=== PATIENT | female | born 1985 | race Caucasian/White ===

== ENCOUNTER 2023-12-03 02:56 | Emergency (ER) | payer MEDICAID, SELFPAY ==
[2023-12-03 03:00] VITALS: BP 150/101; PULSE 106; RESP 20; TEMP 36.6; O2SAT 99; BMI 25.0
--- NOTE | 2023-12-03 03:23 | W.ED.WOUNDLC ---
HPI - Wound/Laceration General: Chief Complaint: Wound/Laceration Stated Complaint: Left Hand Injury Time Seen by Provider: 12/03/23 02:57 History of Present Illness: Patient presents to the ER with complaints of right hand/finger laceration on fingers 234 and 5 on the palmar surface. Patient says she is walking her dog and her dog took off running and she fell and tried to catch herself and grabbed a piece of metal and cut her right hand. Patient has wrapped in a towel and bleeding is controlled at this time. Patient has good movement of all extremities and good neurovascularly intact. Review of Systems General: Reports: 10 or more systems reviewed and unremarkable except in HPI and below Physical Exam HENMT: COMMON NORMALS: normocephalic, atraumatic, hearing grossly normal bilaterally, external ears normal, moist oral mucous membranes and oropharynx normal HEAD & SCALP: normocephalic and atraumatic EXTERNAL EAR: Yes external ears normal Eye: COMMON NORMALS: Equal, round and reactive pupils present, EOMs intact bilaterally, conjunctivae normal and no scleral icterus CONJUNCTIVA: Yes conjunctivae normal PUPIL: Yes Equal, round and reactive pupils present Neck/C-Spine: COMMON NORMALS: full ROM, no lymphadenopathy, supple, no meningeal signs and no JVD Chest: COMMONS NORMALS: normal inspection of the chest and normal palpation of entire chest wall Resp: COMMON NORMALS: normal respiratory effort, No retractions, No use of accessory muscles and clear to auscultation bilaterally AUSCULTATION: clear to auscultation bilaterally Cardio: COMMON NORMALS: no JVD, regular rate, regular rhythm, S1 normal heart sound present, S2 normal heart sound present, No gallops present (Cardio), No clicks present (Cardio), No murmurs present (Cardio) and No rub (Cardio) RATE: regular rate RHYTHM: regular rhythm HEART SOUNDS: S1 normal heart sound present and S2 normal heart sound present GI: COMMON NORMALS: Normal to inspection, nondistended, normoactive bowel sounds present, Soft to palpation, non-tender, No hepatosplenomegaly present and no masses PALPATION: Yes Soft to palpation and Yes No hepatosplenomegaly present Neuro: MENINGEAL SIGNS: Yes no meningeal signs Procedures Laceration Laceration 1: Site: hand (Second digit palmar surface) Side (If applicable): right Size (cm): 1 Description: linear Depth: simple, single layer Local Anesthetic: lidocaine 1% (3 mL in the ring block fashion) Amount of anesthesia used (mL): 3 Pre-repair: wound explored, irrigated extensively and deep structures intact Skin layer closed with: nylon Size (cm): 4-0 Number of sutures: 3 Technique: simple, interrupted Laceration 2: Site: hand (Third digit palmar surface) Side (If applicable): right Size (cm): 1 Description: linear Depth: simple, single layer Local Anesthetic: lidocaine 1% (3 meals and a ring block fashion) Amount of anesthesia used (mL): 3 Pre-repair: wound explored, irrigated extensively and deep structures intact Skin layer closed with: nylon Size (cm): 4-0 Number of sutures: 3 Technique: simple, interrupted Laceration 3: Site: hand (Right fourth digit palmar surface) Side (If applicable): right Size (cm): 0.5 Description: linear Depth: simple, single layer Local Anesthetic: lidocaine 1% (3 mL and a ring block fashion) Pre-repair: wound explored, irrigated extensively and deep structures intact Skin layer closed with: nylon Size (cm): 4-0 Number of sutures: 1 Technique: simple, interrupted Laceration 4: Site: hand (Fifth digit palmar surface) Side (If applicable): right Size (cm): 3 Description: flap and irregular Depth: simple, single layer Local Anesthetic: lidocaine 1% (3 mL and a ring block fashion) Amount of anesthesia used (mL): 3 Pre-repair: wound explored, irrigated extensively and deep structures intact Skin layer closed with: nylon Size (cm): 4-0 Number of sutures: 8 Technique: simple, interrupted Course Vital Signs: Vital signs: Vital Signs Temperature 98 F 12/03/23 03:00 Pulse Rate 88 12/03/23 04:29 Respiratory Rate 20 H 12/03/23 03:00 Blood Pressure 150/101 12/03/23 03:00 Pulse Oximetry 100 12/03/23 04:29 MDM - Wound/Laceration Medical Decision Making Incision was worked numbed up using a ring block fashion with approximately 12 cc of lidocaine total. They were cleaned out with Betadine and soaked in a Betadine solution, they were closed with 4-0 nylon in interrupted fashion with no complications. Patient be placed on Bactrim DS. Tetanus shot was updated. Patient be discharged and should follow-up with her PCP in approximately 7 days for suture removal. Differential Diagnosis Likely laceration Medical Records I reviewed the patient's medical records. Lab Data I reviewed the patient's lab results. All radiology interpretation(s) finalized by discharge Discharge Plan Discharge Patient Disposition: Home Clinical Impression: Laceration of hand, right Qualifiers: Encounter type: initial encounter Foreign body presence: without foreign body Qualified Code(s): S61.411A - Laceration without foreign body of right hand, initial encounter Condition: Stable Prescriptions: New Bactrim DS 800-160 mg tablet 1 tab PO BID Qty: 14 0RF Discharge Orders: Discharge ED (Routine); Ordered 12/03/23 Ordered By: Raza Landaverde Referrals: Saadia Galeas MD [Primary Care Provider] - 1 week Patient Instructions: Finger Laceration (ED) Activity Restrictions/Additional Instructions: Please no soaking of the hand. Please change dressings as needed. Please keep lacerations clean and dry. Please take all your antibiotics as needed. Follow-up with your family practice physician in 7 days for reevaluation and possible suture removal. Coding Level of Care Code ED Contact And Service Clerks Supervisor for Prashanth Santiago
[2023-12-03] MEDS: lidocaine 1% INJ 10 mL (per mL) INJECTION (03:38)
[2023-12-03] MEDS: sulfamethoxazole-trimeth DS 160-800 mg Tablet 1 TAB PO (04:18)
[2023-12-03] MEDS: tetanus-dipt-pertussis 0.5 mL SDV IM (04:18)
--- NOTE | 2023-12-03 04:28 | PC.NURSE ---
Cleaned lac with sterile water x 2 bottles, 1 bottle of betadine, used 4 pks of 4 x 4s, suture pack and 3 pks of sutures.
[2023-12-03 04:29] VITALS: PULSE 88; O2SAT 100
== END 2023-12-03 04:31 | disposition home or self-care (01) ==
PROVIDERS: Emergency Provider Emergency Medicine; Family Provider Pediatrics; PCP Pediatrics
DX: S61.210A Laceration without foreign body of right index finger without damage to nail, initial encounter (principal); S61.212A Laceration without foreign body of right middle finger without damage to nail, initial encounter; S61.214A Laceration without foreign body of right ring finger without damage to nail, initial encounter; S61.216A Laceration without foreign body of right little finger without damage to nail, initial encounter; W18.39XA Other fall on same level, initial encounter; Z23 Encounter for immunization
CPT/HCPCS: 12002; 90471; 90715; 99283

== ENCOUNTER 2024-01-06 21:04 | Emergency (ER) | payer SELFPAY ==
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
[2024-01-06 21:09] VITALS: BP 105/72; PULSE 87; RESP 18; TEMP 36.8; O2SAT 99; BMI 19.8
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
--- NOTE | 2024-01-06 22:53 | PC.NURSE ---
pt wishes to leave AMA, discussed this with dr bean who states pt has pneumothorax and air in her thigh and multiple fractures of ribs. explained the risks to pt and the possibility of her deteriorating or dying and pt still insists on leaving AMA. pt walks out to her family who is in the waiting room who is going to drive her home. AMA form signed
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
== END 2024-01-06 22:55 | disposition left against medical advice (07) ==
PROVIDERS: Emergency Provider Emergency Medicine
DX: S22.41XA Multiple fractures of ribs, right side, initial encounter for closed fracture (principal); J93.9 Pneumothorax, unspecified; S81.812A Laceration without foreign body, left lower leg, initial encounter; V86.55XA Driver of 3- or 4- wheeled all-terrain vehicle (ATV) injured in nontraffic accident, initial encounter
CPT/HCPCS: 70450; 71045; 71250; 72125; 74176; 99284

== ENCOUNTER 2024-01-07 09:09 | Emergency (ER) | payer SELFPAY ==
[2024-01-07] VITALS (7 sets, daily range): BP systolic 115–143; BP diastolic 65–88; PULSE 81–104; RESP 16–18; TEMP 37.1; O2SAT 93–100; BMI 20.1
--- NOTE | 2024-01-07 09:23 | XRR_ITS ---
PROCEDURE INFORMATION: Exam: XR Chest Exam date and time: 01/07/2024 9:30 AM Age: 38 years old Clinical indication: Dyspnea; Additional info: Dyspnea/cough TECHNIQUE: Imaging protocol: Radiologic exam of the chest. Views: 1 view. COMPARISON: CT chest abdpel [id number] 01/06/2024 10:05 PM FINDINGS: Lungs: Unremarkable. No consolidation or mass. Pleural spaces: Unremarkable. No pleural effusion. No pneumothorax. Heart/Mediastinum: Unremarkable. No cardiomegaly. Bones/joints: Unremarkable. XR/XR chest 1V portable [id number] IMPRESSION: No acute findings.
[2024-01-07 09:41] LABS: Basophils # 0.1 10^3/uL (0.0-0.1); Basophils % 0.6 %; Eosinophils % 0.2 %; Hematocrit 37.6 % (36-47); Lymphocytes # 1.1 10^3/uL (0.8-4.8); Lymphocytes % 8.7 %; Mean Corpuscular HGB Conc 34.3 g/dL (30-55); Mean Corpuscular Hemoglobin 31.2 pg (27-33); Mean Corpuscular Volume 90.8 fl (85-98); Mean Platelet Volume 8.5 fL (7.4-10.4); Monocytes # 0.9 10^3/uL (0.2-0.9); Monocytes % 7.3 %; Neutrophils # 10.27 10^3/uL (1.8-7.7); Neutrophils % 82.9 %; Nucleated Red Blood Cells % 0 %; Platelet Count 340 10^3/cmm (157-399); Red Blood Count 4.14 10^6/uL (3.85-5.65); Red Cell Distribution Width 12.5 % (12.1-15.1); White Blood Count 12.39 10^3/uL (3.29-11.43)
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
--- NOTE | 2024-01-07 09:47 | ECG_ITS ---
[facility] Test Date: 2024-01-07 Pat Name: Talya Salgado Department: Room: Gender: Female Ssrs Report Developer: : 1985 Requested By: Jesus Cheng Order Number: [id number] Phoebe MD: Marissa Hood M.D. Measurements Intervals Silver Rate: 93 P: 87 AK: 160 QRS: 86 QRSD: 85 T: 77 QT: 357 QTc: 444 Interpretive Statements SINUS RHYTHM POSSIBLE LEFT ATRIAL ENLARGEMENT [-0.1mV P-WAVE IN V1/V2] No previous ECG available for comparison Electronically Signed On 01-07-2024 12:05:10 CDT by Marissa Hood M.D. [email or web address]
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
[2024-01-07 09:57] LABS: Alanine Aminotransferase 41 U/L (0-33); Albumin Level 4.4 g/dL (3.5-5.2); Alkaline Phosphatase 73 U/L (35-105); Anion Gap 18.9 (5-19); Aspartate Amino Transferase 83 U/L (0-32); Blood Urea Nitrogen 6 mg/dL (6-20); Calcium 9.1 mg/dL (8.5-10.5); Carbon Dioxide 22 mmol/L (22-29); Chloride 95 mmol/L (98-107); Creatinine Clr Calc Pharmacy 99.2378; Globulin 3.3 g/dL (1.3-4.6); Glomerular Filtration Rate 93.2 mL/min (90-130); Glucose 119 mg/dL (65-115); Osmolality Calculated 273 mOsm/kg (285-295); Potassium 3.9 mmol/L (3.5-5.1); Sodium 132 mmol/L (136-145); Total Bilirubin 0.7 mg/dL (0.15-1.2); Total Protein 7.7 g/dL (6.6-8.7)
[2024-01-07 09:58] LABS: HCG, Serum Qual Negative (Negative)
[2024-01-07 10:08] LABS: Lactic Sepsis W/Reflex 1.3 mmol/L (0.5-2.2); Lipase 26 U/L (13-60)
[2024-01-07] MEDS: morphine 4 mg/mL SDV 1 mL IVP ×2 (10:12→12:03)
[2024-01-07] MEDS: sodium chloride 0.9% 1,000 ML 999 ML IV (10:14)
[2024-01-07] MEDS: ondansetron 2 mg/ML SDV 2 mL 4 MG IVP (10:16)
[2024-01-07] MEDS: piperacillin-tazobactam 3.375 GM in sodium chloride 0.9% (plus) 50 ML IV (10:17)
--- NOTE | 2024-01-07 10:20 | PC.NURSE ---
PER DR ARECHIGA, DO NOT GIVE CEFAZOLIN, CHANGED ORDER TO ZOSYN.
[2024-01-07] MEDS: metoclopramide 5 mg/mL SDV 2 mL 10 MG IVP (12:00)
== END 2024-01-07 12:40 ==
PROVIDERS: Emergency Provider Family Medicine
DX: S22.41XA Multiple fractures of ribs, right side, initial encounter for closed fracture (principal); S32.10XA Unspecified fracture of sacrum, initial encounter for closed fracture; S27.329A Contusion of lung, unspecified, initial encounter; J93.9 Pneumothorax, unspecified; V86.55XA Driver of 3- or 4- wheeled all-terrain vehicle (ATV) injured in nontraffic accident, initial encounter
CPT/HCPCS: 71045; 71260; 74177; 80053; 83605; 83690; 84703; 85025; 93005; 96365; 96375; 96376; 99285; 99291; 99292; J2270; J2405; J2543; J2765; J7030; Q9967

== ENCOUNTER 2025-05-26 21:22 | Emergency (ER) | payer MEDICAID, SELFPAY ==
--- OUTSIDE RECORDS SUMMARY | 2025-05-21 11:40 | XMS_ITS | Encounter Summary ---
Author Organization [facility] Address [address] [place] [address] Care Team Providers Care Casting Repairer Name Role Phone Birgit Dietrich DO Primary Care Provider [phone] Reason for Visit * Reason Comments left shoulder pain Encounter Details Date Type Department Care Team (Late st Contact Info) Description 05/21/2025 11:40 AM CDT Office Visit [facility] [place] [address] [address] Austin Cool, MILIEU TECHNICIAN 1605 [facility] [address] [place] [address] Acute pain of right shoulder (Primary Dx); Work related injury; Decreased ROM of right shoulder; Muscle spasm; Numbness and tingling Social History Tobacco Use Types Packs/Day Years Used Date Smoking Tobacco: Former Cigarettes Smokeless Tobacco: Never Comments:Quit smoking: Has c ut back from 2 ppd occasionally Alcohol Use Standard Drinks/Week Comments Not Currently 0 (1 standard drink = 0.6 oz pur e alcohol) 6-12 beers daily Feeling Safe Answer Date Recorded Are you in a relationship wi th someone who hurts you emotionally and/or physically? 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 Gender Identity Not on file Sexual Orientation Not on file documented as of this encounter Last Filed Vital Signs Vital Sign Reading Time Taken Comments Blood Pressure 118/76 05/21/2025 11:40 AM CDT Pulse 88 05/21/2025 11:40 AM CDT Temperature - - Respiratory Rate - - Oxygen Saturation 99% 05/21/2025 11:40 AM CDT Inhaled Oxygen Concentration - - Weight 54.9 kg (121 lb) 05/21/2025 11:40 AM CDT Height 167.6 cm (5' 6 ) 05/21/2025 11:40 AM CDT Body Mass Index 19.53 05/21/2025 11:40 AM CDT documented in this encounter Progress Notes * Austin Cool FNP - 05/21/2025 11:38 AM CDT Pt here for left shoulder pain after falling at work, 2 times- not filing Work comp Chief Complaint Patient presents with left shoulder pain SUBJECTIVE: Subjective left shoulder pain History of Present Illness Talya Salgado 40 yo female who presents for right arm pain/shoulder/chest. She experienced a fall at her workplace, a [employer], approximately 1.5 weeks ago. This incident marked her second fall within the same week, a new occurrence for her. The fall was caused byslipping on a wet floor, during which she attempted to break her fall with her right arm. This resulted in a sharp pain radiating through her chest, causing her to remain seated for some time before receiving assistance from her employer to stand up. Since the fall, she has noticed an increase in popping sounds from her chest, particularly when performing tasks such as wiping tables. She also reports dropping a plate recently. Additionally, she experiences numbness, tingling, and a burning sensa tion, leading her to suspect a pinched nerve. She is currently taking Flexeril three times daily, but it does not seem to alleviate her symptoms. 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 3 Tablet 0 cyclobenzaprine (FLEXERIL) 10 mg tablet Take 1 Tablet (10 mg) by mouth 3 times daily as needed for Spasm. 45 Tablet 0 HYDROcodone-acetaminophen (NORCO) 5-325 mg tablet Take 1 Tablet by mouth every 6 hours as needed for Pain, Moderate. Max Daily Amount: 4 Tablets 120 Tablet 0 ibuprofen (MOTRIN) 200 mg tablet Take 200 mg by mouth every 6 hours as needed for Pain, Mild. loratadine-pseudoephedrine (CLARITIN-D) 10-240 mg Extended Release 24 hour tablet Take 1 Tablet by mouth daily. fluticasone propionate (FLONASE) 50 mcg/spray [place], Suspension nasal inhaler Administer 2 Sprays in each nostril daily. 16 Gram 3 meloxicam (MOBIC) 15 mg tablet Take 1 Tablet (15 mg) by mouth daily. (Patient not taking: Reported on 05/21/2025) 30 Tablet 1 naloxone (NARCAN) 4 mg/spray [place], Non-Aerosol EMERGENCY USE ONLY: Administer 1 spray (4 mg) in one nostril one time. May repeat in alternating nostrils every 2-3 min until responsive or EMS arrives. (Patient not taking: Reported on 05/21/2025) 2 Each 3 No current facility-administered medications for this visit. PAST MEDICAL/SURGICAL HISTORY: Past Medical History: Diagnosis Date Abnormal maternal glucose tolerance, antepartum 05/29/2010 Abnormal Pap smear 2006 HPV and biopsy ASCUS on Pap smear 03/31/2010 Chlamydia 2004 Genital warts Heart disease, unspecified 2001 echo cardiogram showed three leaking valves at [facility] [place]. Pneumothorax, traumatic 01/09/2024 Past Surgical History: Procedure Laterality Date HX AMNIOCENTESIS 2000 HX EXAMINATION UNDER ANESTHESIA 01/10/2024 RECTAL EXAMINATION UNDER ANESTHESIA performed by Mecca Hunter DO at [facility] OR LEG SURGERY Right 01/10/2024 DEBRIDEMENT OF RIGHT PERINEAL WOUND performed by Mecca Hunter DO at [facility] OR HX TUBAL LIGATION HI ANRCT XM SURG REQ ANES GENERAL SPI/EDRL DX 01/10/2024 VAGINAL EXAM UNDER ANETHESIA performed by Mecca Hunter DO at [facility] OR Social History Socioeconomic History Marital status: Single Tobacco Use Smoking status: Former Current packs/day: 1.00 Types: Cigarettes Smokeless tobacco: Never Tobacco comments: Quit smoking: Has cut back from 2 ppd occasionally Vaping Use Vaping status: Never Used Substance and Sexual Activity Alcohol use: Not Currently Comment: 6-12 beers daily Drug use: Yes Types: Marijuana Social History Narrative Merged History Encounter Health-Related Social Needs Transportation Needs: No Transportation Needs (12/18/2024) Transportation Needs Patient needs follow up regarding:: 1 Domestic Concerns: Not At Risk (01/07/2024) Feeling Safe Patient has indicated abuse: : No OBJECTIVE: PHYSICAL EXAM: Vitals: 05/21/25 1140 Pulse: 88 BP: 118/76 SpO2: 99% Physical Exam Vitals reviewed. Constitutional: Appearance: Normal appearance. HENT: Right Ear: Tympanic membrane normal. Left Ear: Tympanic membrane normal. Nose: Nose normal. Mouth/Throat: Mouth: Mucous membranes are moist. Eyes: Conjunctiva/sclera: Conjunctivae normal. Pupils: Pupils are equal, round, and reactive to light. Cardiovascular: Rate and Rhythm: Normal rate and regular rhythm. Pulses: Normal pulses. Heart sounds: Normal heart sounds. Pulmonary: Effort: Pulmonary effort is normal. Breath sounds: Normal breath sounds. Abdominal: General: Abdomen is flat. Bowel sounds are normal. Palpations: Abdomen is soft. Musculoskeletal: General: Tenderness and signs of injury present. Cervical back: Normal range of motion. Skin: General: Skin is warm and dry. Neurological: General: No focal deficit present. Mental Status: She is alert and oriented to person, place, and time. Psychiatric: Mood and Affect: Mood normal. Behavior: Behavior normal. Labs: No results found for this visit on 05/21/25 (from the past week). ASSESSMENT/PLAN: Acute pain of right shoulder (Primary) Significant decreased PROM without pain. Patient in significant enough pain. Advised to rest and stretch ever so slightly. Advised to take off from work for at least a week and then we can reevaluate. Concerns about a tear. Prednisone to help with inflammation. Patient has an active script for [facility] 5 mg already. Follow up in a week. Xrays ordered. Continue Flexeril. - XR SHOULDER 2+ VW RIGHT; Future - XR CHEST PA AND LATERAL 2 VW; Future - predniSONE (DELTASONE) 10 mg tablet; Take 1 Tablet (10 mg) by mouth daily. Dispense: 3 Tablet; Refill: 0 Work related injury Patient is not planning on filing for work nakita comp. - XR SHOULDER 2+ VW RIGHT; Future - XR CHEST PA AND LATERAL 2 VW; Future - predniSONE (DELTASONE) 10 mg tablet; Take 1 Tablet (10 mg) by mouth daily. Dispense: 3 Tablet; Refill: 0 Decreased ROM of right shoulder - predniSONE (DELTASONE) 10 mg tablet; Take 1 Tablet (10 mg) by mouth daily. Dispense: 3 Tablet; Refill: 0 Muscle spasm - predniSONE (DELTASONE) 10 mg tablet; Take 1 Tablet (10 mg) by mouth daily. Dispense: 3 Tablet; Refill: 0 Numbness and tingling On the day of the visit, I spent 15 minutes providing care to this patient including Preparing to see the patient, Obtaining and/or reviewing separately obtained history, Performing a medically appropriate examination and/or evaluation, Counseling and educating the patient/family/caregiver, and Ordering medications, tests or procedures. This time does not reflect time spent for preventative care. ANI Livingston This note was created using [employer] Video Dictation software. Attempts were made to correct any mistakes prior to signing this note. There is always a possibility that words were not transcribed correctly. documented in this encounter Plan of Treatment Upcoming Encounters Date Type Department Care Team (Late st Contact Info) Description 05/28/2025 2:40 PM CDT Office Visit [address] [phone] Austin Cool FNP [address] [phone] 06/19/2025 10:45 AM CDT Appointment [facility] [address] [place] [address] Austin Cool FNP [address] [phone] 08/05/2025 10:40 AM OVERHEAD GARAGE DOOR HANGER Office Visit [facility] [address] [place] [phone] Birgit Dietrich, DO 1605 [facility] [place] [phone] documented as of this encounter Results * XR CHEST PA AND LATERAL 2 VW (05/21/2025 12:13 PM CDT) Anatomical Region Laterality Modality Chest Computed Radiogr aphy 05/21/2025 12:1 3 PM CDT Impressions 05/21/2025 8:45 PM CDT IMPRESSION: Please see below. Exam: XR CHEST PA AND LATERAL 2 VW Date/Time of Exam: 05/21/2025 12:13 PM Reason For Exam: See Diagnosis. Diagnosis: Acute pain of right shoulder; Work related injury. Findings: Comparison 01/08/2024. The lungs are mildly hyperinflated. There is no pneumothorax. The lungs are clear. The cardiomediastinal silhouette and pulmonary vessels are unremarkable. The bony thorax is grossly intact. IMPRESSION: No significant radiographic abnormality. Narrative Procedure Note Radha Silvestre MD - 05/21/2025 IMPRESSION: Please see below. Exam: XR CHEST PA AND LATERAL 2 VW Date/Time of Exam: 05/21/2025 12:13 PM Reason For Exam: See Diagnosis. Diagnosis: Acute pain of right shoulder; Work related injury. Findings: Comparison 01/08/2024. The lungs are mildly hyperinflated. There is no pneumothorax. The lungs are clear. The cardiomediastinal silhouette and pulmonary vessels are unremarkable. The bony thorax is grossly intact. IMPRESSION: No significant radiographic abnormality. Austin Cool MILIEU TECHNICIAN DIAGNOSTIC IMAGING ORDERA BLES Final Result * XR SHOULDER 2+ VW RIGHT (05/21/2025 12:13 PM CDT) Anatomical Region Laterality Modality Upper Extremity Computed Radiogr aphy 05/21/2025 12:1 3 PM CDT Impressions 05/23/2025 6:11 AM CDT IMPRESSION: See below. Exam: XR SHOULDER 2+ VW RIGHT Date/Time of Exam: 05/21/2025 12:13 PM Reason For Exam: See Diagnosis. Diagnosis: Acute pain of right shoulder; Work related injury. Findings: Comparison: 04/12/2024 The visualized proximal humerus is unremarkable. The acromioclavicular articulation is well maintained. The glenohumeral joint is well maintained. There is no evidence of fracture or dislocation. Visualized lung field, soft tissues and thoracic bony structures are unremarkable. IMPRESSION: 1. No evidence of acute fracture or dislocation. Narrative Procedure Note Tomas Hair MD - 05/23/2025 IMPRESSION: See below. Exam: XR SHOULDER 2+ VW RIGHT Date/Time of Exam: 05/21/2025 12:13 PM Reason For Exam: See Diagnosis. Diagnosis: Acute pain of right shoulder; Work related injury. Findings: Comparison: 04/12/2024 The visualized proximal humerus is unremarkable. The acromioclavicular articulation is well maintained. The glenohumeral joint is well maintained. There is no evidence of fracture or dislocation. Visualized lung field, soft tissues and thoracic bony structures are unremarkable. IMPRESSION: 1. No evidence of acute fracture or dislocation. Loreleimonica Gila Cool MILIEU TECHNICIAN DIAGNOSTIC IMAGING ORDERA BLES Final Result documented in this encounter Visit Diagnoses Diagnosis Acute pain of right shoulder- Primary Work related injury Injury, other and unspecified, unspecified site Decreased ROM of right shoulder Muscle spasm Spasm of muscle Numbness and tingling Disturbance of skin sensation Acute pain of right shoulder Work related injury Injury, other and unspecified, unspecified site Acute pain of right shoulder Work related injury Injury, other and unspecified, unspecified site documented in this encounter Care Teams Casting Repairer Relationship Specialty Start Date End Date [facility], [address] [place] [phone] PCP - General Family Practice 06/04/24 documented as of this encounter
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
--- OUTSIDE RECORDS SUMMARY | 2025-05-21 12:04 | XMS_ITS | Encounter Summary ---
Author Organization [facility] Address 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 16 Gram 3 02/14/2024 12:46 PM CDT 02/09/2024 naloxone (NARCAN) 4 mg/spray [place], Non-Aerosol EMERGENCY USE ONLY: Administer 1 spray (4 mg) in one nostril one time. May repeat in alternating nostrils every 2-3 min until responsive or EMS arrives. 2 Each 3 01/13/2024 documented as of this encounter Plan of Treatment Upcoming Encounters Date Type Department Care Team (Late st Contact Info) Description 05/28/2025 2:40 PM CDT Office Visit [facility] [address] [phone] Austin Cool FNP 1605 [facility] [address] [place] [address] 06/19/2025 10:45 AM CDT Appointment [facility] [address] [place] [phone] Travon Ausitn Gila, PRESSER MACHINE 1605 [facility] [address] [place] [phone] 08/05/2025 10:40 AM MITTEN STITCHER Office Visit [facility] Medicine [place] [address] [facility] [address] [place] [phone] Birgit Dietrich, DO 1605 [facility] [address] [place], [place] [phone] documented as of this encounter Procedures Procedure Name Priority Date/Time Associated Diagnosis Comments XR CHEST PA AND LATERAL 2 VW Routine 05/21/2025 12:13 PM CDT Acute pain of right shoulder Work related injury documented in this encounter Results * XR CHEST PA [...] intact. IMPRESSION: No significant radiographic abnormality. Austin Uriostegui Travon PRESSER MACHINE DIAGNOSTIC IMAGING ORDERA BLES Final Result documented in this encounter Visit Diagnoses Diagnosis Acute pain of right shoulder Work related injury Injury, other and unspecified, unspecified site documented in this encounter Care Teams Keyseater Operator Relationship Specialty Start Date End Date Karlo Birgit, DO [address] [place] [address] [phone] PCP - General Family Practice 06/04/24 documented as of this encounter
[2025-05-26 21:28] VITALS: BP 121/68; PULSE 99; RESP 17; TEMP 36.9; O2SAT 97; BMI 19.3
--- OUTSIDE RECORDS SUMMARY | 2025-05-26 21:30 | XMS_ITS | Encounter Summary ---
Author Organization [facility] Address [address] [place] [address] Care Team Providers Care Machine Cementer Name Role Phone Birgit Dietrich DO Primary Care Provider [phone] Reason for Referral * MRI (Routine) - Open Specialty Diagnoses / Procedures Referred By Trinidad boyle Referred To Contact Radiology Diagnoses Work related injury Acute pain of right shoulder Decreased ROM of right shoulder Muscle spasm Numbness and tingling Procedures MRI SHOULDER WO CONTRAST RIGHT Austin Cool FNP [address] [phone] Phone: tel: fax: [facility] [address] [place] [address] Phone: tel: fax: Referral ID Status Reason Start Date Expiration Date V isits Requested Visits Authorized [id number] Open ALN View CTS to Schedule 05/24/2025 06/24/2026 1 1 Encounter Details Date Type Department Care Team (Late st Contact Info) Description 05/24/2025 Results Follow-Up [facility] Family Medicine [place] [address] [phone] Austin Cool FNP [address] [phone] XR CHEST PA AND LATERAL 2 VW Social History Tobacco Use Types Packs/Day Years [...] on file Legal Sex Female 7:06 AM POLICY WRITER TYPIST Gender Identity Not on file Sexual Orientation Not on file documented as of this encounter Miscellaneous Notes * Result Encounter Note - Austin Cool FNP - 05/24/2025 10:18 AM CDT Images of shoulder and chest are normal. Work on stretching and exercises. Continue with muscle relaxers. MRI ordered if patient is able to get insurance set up with [facility] to help with coverage. Concerns about significant decrease ROM. documented in this encounter Plan of Treatment Upcoming Encounters Date Type Department Care Team (Late st Contact Info) Description 05/28/2025 2:40 PM CDT Office Visit [facility] Medicine [place] [address] [place] [phone] Austin Cool FNP [address] [phone] 06/19/2025 10:45 AM CDT Appointment [facility] [address] [place] [address] Austin Cool FNP [address] [place] [phone] 08/05/2025 10:40 AM POLICY WRITER TYPIST Office Visit [facility] Medicine [place] [address] [place] [phone] [facility], DO [address] [place] [phone] Scheduled Orders Name Type Priority Associated Diagnoses Orde r Schedule MRI SHOULDER WO CONTRAST RIGHT Imaging Routine Work related injury Acute pain of right shoulder Decreased ROM of right shoulder Muscle spasm Numbness and tingling 1 Occurrences starting 05/24/2025 until 05/24/2026 documented as of this encounter Visit Diagnoses Diagnosis Work related injury- Primary Injury, other and unspecified, unspecified site Acute pain of right shoulder Decreased ROM of right shoulder Muscle spasm Spasm of muscle Numbness and tingling Disturbance of skin sensation documented in this encounter Care Teams Machine Cementer Relationship Specialty Start Date End Date [facility], [address] [place] [phone] PCP - General Family Practice 06/04/24 documented as of this encounter
--- OUTSIDE RECORDS SUMMARY | 2025-05-26 21:30 | XMS_ITS | Clinical Summary ---
Author Organization [facility] Address [address] [address] Phone Care Team Providers Care Shelter Supervisor Name Role Phone Saadia Galeas MD Primary Care Provider [phone] Allergies Active Allergy Reactions Criticality Noted Date Comments Codeine Rash,Nausea/Vomiting Low 01/31/2024 Medications morphine (MSIR) 15 mg tablet Take 15 mg by mouth 2 (two) times a day if needed for severe pain (7-10). Active Social History Tobacco Use Types Packs/Day Years Used Date Smoking Tobacco: Never Assessed PHQ-2 Answer Date Recorded Patient Health Questionnaire-2 Score 0 01/31/2024 [facility] - Mental Health Answer Date Recorde d Little interest or pleasure in doing things Not at all 01/31/2024 Feeling down, depressed, or hopeless Not at all 01/31/2024 Feeling of Stress Not on file 01/31/2024 Comments Unknown Sex and Gender Information Value Date Recorded Sex Assigned at Not on file Legal Sex Female 1:51 PM CDT Gender Identity Not on file Sexual Orientation Not on file Last Filed Vital Signs Vital Sign Reading Time Taken Comments Blood Pressure 122/81 01/31/2024 8:42 AM CDT Pulse 88 01/31/2024 8:42 AM CDT Temperature 36.2 C (97.1 F) 01/31/2024 8:42 AM CDT Respiratory Rate - - Oxygen Saturation 98% 01/31/2024 8:42 AM CDT Inhaled Oxygen Concentration - - Weight 54.9 kg (121 lb) 01/31/2024 8:42 AM CDT Height 167.6 cm (5' 6 ) 01/31/2024 8:42 AM CDT Body Mass Index 19.53 01/31/2024 8:42 AM CDT Plan of Treatment Health Maintenance Due Date Last Done Comments MMR Vaccines (1 of 1 - Standard series) 01/19/1985 Varicella Vaccines (1 of 2 - 13+ 2-dose series) 01/19/1997 Depression Screening 01/19/2002 Social Drivers of Health (SDoH) 01/19/2002 Hepatitis B Vaccines (1 of 3 - 19+ 3-dose series) 01/19/2003 Pap Smear 01/19/2005 HPV Vaccines (1 - 3-dose SCD M series) 01/19/2011 Cervical Cancer Screening 01/19/2014 HPV/Cotest 01/19/2014 Mammogram 2024 DTaP,Tdap,and Td Vaccines (3 - Td or Tdap) 06/03/2024 12/03/2023, 01/16/2018 COVID-19 Vaccine (1 - 2023-2 5 season) 2025 Influenza Vaccine (#1) 2025 3, 06/28/2011, 05/11/2010 Pneumococcal Vaccine: 50+ Years (1 of 1 - PCV) 01/19/2034 Zoster Vaccines (1 of 2) 01/19/2034 RSV Vaccines (1 - 1-dose 75+ series) 01/19/2059 HIB Vaccines Aged Out No longer eligi ble based on patient's age to complete this topic Hepatitis A Vaccines Aged Out No long er eligible based on patient's age to complete this topic IPV Vaccines Aged Out No longer eligi ble based on patient's age to complete this topic Meningococcal B Vaccine Aged Out No l onger eligible based on patient's age to complete this topic Meningococcal Vaccine Aged Out No miguel artur eligible based on patient's age to complete this topic Pneumococcal Vaccine Aged Out No long er eligible based on patient's age to complete this topic Rotavirus Vaccines Aged Out No longer eligible based on patient's age to complete this topic [facility] Care Teams Shelter Supervisor Relationship Specialty Start Date End Date Saadia Galeas MD [address] [place] [address] PCP - General Family Medicine 01/26/24
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
--- NOTE | 2025-05-26 21:40 | USR_ITS ---
PROCEDURE INFORMATION: Exam: US Duplex Left Lower Extremity Veins, Limited Exam date and time: 05/26/2025 10:39 PM Age: 40 years old Clinical indication: Swelling (edema) of limb; Lower extremity, left; Additional info: Redness/swelling TECHNIQUE: Imaging protocol: Real-time duplex ultrasound of the left extremity with 2-D sun scale, color Doppler flow and spectral waveform analysis including responses to compression and other maneuvers (when performed) with image documentation. Limited exam focused on the left lower extremity veins. COMPARISON: No relevant prior studies available. FINDINGS: Left deep veins: All imaged left lower extremity deep veins demonstrate normal flow, compressibility, and/or augmentation without evidence of deep venous thrombosis. Superficial veins: Greater saphenous vein at the saphenofemoral junction is patent without thrombus. Soft tissues: Unremarkable. US/CV venous duplex [facility] [id number] IMPRESSION: No evidence of deep vein thrombosis.
[2025-05-26 22:02] LABS: Hematocrit 34.9 % (36-47); Hemoglobin 11.60 g/dL (11.27-16.99); Mean Corpuscular HGB Conc 33.2 g/dL (30-55); Mean Corpuscular Hemoglobin 30.6 pg (27-33); Mean Corpuscular Volume 92.1 fl (85-98); Nucleated Red Blood Cells % 0 %; Platelet Count 339 10^3/cmm (157-399); Red Blood Count 3.79 10^6/uL (3.85-5.65); White Blood Count 9.80 10^3/uL (3.29-11.43)
[2025-05-26 22:26] LABS: Alanine Aminotransferase 12 U/L (0-33); Albumin Level 4.5 g/dL (3.5-5.2); Alkaline Phosphatase 73 U/L (35-105); Anion Gap 19.2 (5-19); Aspartate Amino Transferase 16 U/L (0-32); Blood Urea Nitrogen 15 mg/dL (6-20); Calcium 9.0 mg/dL (8.5-10.5); Carbon Dioxide 23 mmol/L (22-29); Chloride 100 mmol/L (98-107); Creatinine Clr Calc Pharmacy 95.7580; Globulin 2.6 g/dL (1.3-4.6); Glucose 91 mg/dL (65-115); Osmolality Calculated 286 mOsm/kg (285-295); Potassium 4.2 mmol/L (3.5-5.1); Sodium 138 mmol/L (136-145); Total Protein 7.1 g/dL (6.6-8.7)
--- NOTE | 2025-05-26 23:45 | W.ED.EXTPRO ---
HPI - Extremity Problem General: Chief complaint: Extremity Problem,Nontraumatic Stated complaint: believes blood clot in L leg Time Seen by Provider: 05/26/25 23:22 Source: patient Mode of arrival: ambulatory Limitations: no limitations History of Present Illness: Patient is a 40-year-old female who presents to the ED today for evaluation of left lower leg pain, redness, warmth, and swelling. She states about a week ago she began noticing a soreness to her anterior lower leg and states since then she feels like the area is slightly red and warm to the touch and feels like it is slightly swollen. Symptoms are just proximal to her ankle joint. She states she is not having any joint pain. She has not noticed any recent scratches or abrasions. She states she has a primary care appointment scheduled for Tuesday but states one of her family members told her it could be a blood clot thus prompting her evaluation today. She is not running fevers. No other systemic symptoms. No history of DVTs. MD Complaint: extremity pain and extremity swelling Onset (ago): day(s) Pain Consistency: constant Location: left and lower extremity Radiation: none Relieving factors: nothing Exacerbating factors: nothing Associated symptoms: Reports no associated symptoms; Deny chest pain or fever(s) Related Data Home Medications ?Medication ?Instructions ?Recorded ?Confirmed diphenhydramine HCl 25 mg capsule 50 mg PO DAILY PRN Allergy Symptoms 01/07/24 01/07/24 (Benadryl) ibuprofen 200 mg tablet 800 mg PO Q6H PRN Pain 01/07/24 01/07/24 Previous Rx's ?Medication ?Instructions ?Recorded clindamycin HCl 300 mg capsule 300 mg PO Q6H 7 days #28 caps 05/26/25 Allergies Allergy/AdvReac Type Severity Reaction Status Date / Time codeine Allergy ALGY-Rash Verified 01/07/24 09:59 Review of Systems Const: Denies: fever(s), chills, body aches, fatigue or malaise Card: Denies: chest pain Resp: Denies: dyspnea Musc: Reports: extremity pain and extremity swelling; Denies: joint pain, joint swelling, joint redness, joint warmth, muscle cramps or muscle weakness Skin/Breast: Reports: erythema (L LE) Neuro: Denies: numbness in extremities, weakness in extremities, sensory changes or difficulty walking Physical Exam Const: COMMON NORMALS: no acute distress, average body habitus, no limitations, healthy appearing, alert and well nourished Resp: COMMON NORMALS: normal respiratory effort and clear to auscultation bilaterally AUSCULTATION: clear to auscultation bilaterally Cardio: COMMON NORMALS: regular rate and regular rhythm RATE: regular rate RHYTHM: regular rhythm Extremity: COMMON NORMALS: full ROM, capillary refill normal, no joint enlargement and no calf tenderness GENERAL: Yes normal exam except as noted LEFT LOWER EXTREMITY: Yes lower leg (see below) Left lower leg: Yes neurovascular exam (normal) EXTREMITY IMAGE (FRONT):  1. mild erythema/warmth/edema; no streaking; full painless ROM ankle joint; no abscess Neuro: COMMON NORMALS: moves all extremities, no focal motor deficits, no sensory deficits noted and gait normal SENSORIUM/ORIENTATION: Yes alert Skin: NARRATIVE SKIN EXAM: see above Course Vital Signs: Vital signs: Vital Signs Temperature 98.4 F 05/26/25 21:28 Pulse Rate 99 05/26/25 21:28 Respiratory Rate 17 05/26/25 21:28 Blood Pressure 121/68 05/26/25:28 Pulse Oximetry 97 05/26/25 21:28 Oxygen Delivery Me thod Room Air 05/26/25 21:28 MDM - Extremity (Nontraumatic) Medical Decision Making Patient here with complaints of redness, swelling, pain, warmth affecting mainly the anterior aspect of her left lower leg. She was concerned about a DVT. US is unremarkable. Vital signs are normal. She has a normal white count. CRP is scantly elevated at 5.1. She will be treated for a cellulitis with recommendations to follow-up with PCP on Tuesday as scheduled. Return to ED precautions discussed. Differential Diagnosis Likely cellulitis, superficial thrombophlebitis, lower extremity edema and deep vein thrombosis of lower extremity Medical Records I reviewed the patient's medical records. Lab Data I reviewed the patient's lab results. 05/26/25 21:52 05/26/25 21:52 Radiology Impressions Venous Duplex 05/26/25 21:40 IMPRESSION: No evidence of deep vein thrombosis. Laboratory Results WBC 9.80 10^3/uL (3.29-11.43) 05/26/25 21:52 RBC 3.79 10^6/uL (3.85-5.65) L 05/26/25 21:52 Hgb 11.60 g/dL (11.27-16.99) 05/26/25 21:52 Hct 34.9 % (36-47) L 05/26/25 21:52 MCV 92.1 fl (85-98) 05/26/25 21:52 MCH 30.6 pg (27-33) 05/26/25 21:52 MCHC 33.2 g/dL (30-55) 05/26/25 21:52 RDW 12.5 % (12.1-15.1) 05/26/25 21:52 Plt Count 339 10^3/cmm (157-399) 05/26/25 21:52 MPV 8.2 fL (7.4-10.4) 05/26/25 21:52 Neut % (Auto) 57.0 % 05/26/25 21:52 Lymph % (Auto) 33.9 % 05/26/25 21:52 Garrett % (Auto) 6.9 % 05/26/25 21:52 Eos % (Auto) 1.3 % 05/26/25:52 Baso % (Auto) 0.6 % 05/26/25:52 Neut # (Auto) 5.58 10^3/uL (1.8-7.7) 05/26/25:52 Lymph # (Auto) 3.3 10^3/uL (0.8-4.8) 05/26/25 21:52 Garrett # (Auto) 0.7 10^3/uL (0.2-0.9) 05/26/25 21:52 Eos # (Auto) 0.1 10^3/uL (0.0-0.8) 05/26/25 21:52 Baso # (Auto) 0.1 10^3/uL (0.0-0.1) 05/26/25:52 Nucleated RBC % (auto) 0 % 05/26/25:52 Nucleated RBCs # 0.0 /100WBC 05/26/25 21:52 Sodium 138 mmol/L (136-145) 05/26/25 21:52 Potassium 4.2 mmol/L (3.5-5.1) 05/26/25 21:52 Chloride 100 mmol/L (98-107) 05/26/25 21:52 Carbon Dioxide 23 mmol/L (22-29) 05/26/25 21:52 Anion Gap 19.2 (5-19) H 05/26/25 21:52 BUN 15 mg/dL (6-20) 05/26/25 21:52 Creatinine 0.7 mg/dL (0.5-0.9) 05/26/25 21:52 GFR Calculation 92.2 mL/min (90-130) 05/26/25 21:52 Glucose 91 mg/dL (65-115) 05/26/25 21:52 Calculated Osmolality 286 mOsm/kg (285-295) 05/26/25 21:52 Calcium 9.0 mg/dL (8.5-10.5) 05/26/25 21:52 Total Bilirubin 0.2 mg/dL (0.15-1.2) 05/26/25 21:52 AST 16 U/L (0-32) 05/26/25 21:52 ALT 12 U/L (0-33) 05/26/25 21:52 Alkaline Phosphatase 73 U/L (35-105) 05/26/25 21:52 C-Reactive Protein 5.1 mg/L (0.0-4.9) H 05/26/25 21:52 Total Protein 7.1 g/dL (6.6-8.7) 05/26/25 21:52 Albumin 4.5 g/dL (3.5-5.2) 05/26/25 21:52 Globulin 2.6 g/dL (1.3-4.6) 05/26/25 21:52 All radiology interpretation(s) finalized by discharge Discharge Plan Discharge Patient Disposition: Home Clinical Impression: Cellulitis of left lower extremity Condition: Stable Prescriptions: New clindamycin HCl 300 mg capsule 300 mg PO Q6H 7 Days Qty: 28 0RF No Action Benadryl 25 mg Capsule 50 mg PO DAILY PRN (Reason: Allergy Symptoms) ibuprofen 200 mg Tablet 800 mg PO Q6H PRN (Reason: Pain) Discharge Orders: Discharge ED (Routine); Ordered 05/26/25 Ordered By: Clair Hurst Patient Instructions: Cellulitis (ED), Patient Portal & Marielena Instructions Print Language: Czech Coding Level of Care Code ED Slitter And Rewinder Machine Operator for Chg Pamela
[2025-05-26 23:55] VITALS: BP 139/91; PULSE 99; O2SAT 99
== END 2025-05-26 23:56 | disposition home or self-care (01) ==
PROVIDERS: Emergency Provider Physician Assistant
DX: L03.116 Cellulitis of left lower limb (principal)
CPT/HCPCS: 80053; 85025; 86140; 93971; 99284; J9999